=== PATIENT | male | born 1980 | race American Indian/Alaskan Native ===

== ENCOUNTER 2021-10-20 17:28 | Emergency (ER) | payer OTHER ==
[2021-10-20 17:32] VITALS: BP 139/86
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
[2021-10-20] MEDS ORDERED: CYCLOBENZAPRINE 10 MG TAB PO ONE (21:48)
[2021-10-20] MEDS ORDERED: ACETAMINOPHEN 500 MG TAB PO ONE (21:48)
[2021-10-20] MEDS ORDERED: IBUPROFEN 600 MG TAB PO ONE (21:48)
== END 2021-10-20 23:32 | disposition home or self-care (01) ==
LOC: ED 17:28 → EDBD 17:28 → ED 23:32
DX: R25.2 Cramp and spasm (principal); M79.10 Myalgia, unspecified site; V89.2XXA Person injured in unspecified motor-vehicle accident, traffic, initial encounter; Y93.89 Activity, other specified; Y92.89 Other specified places as the place of occurrence of the external cause; Y99.8 Other external cause status
CPT/HCPCS: 99282